=== PATIENT | male | born 1985 | race Caucasian/White ===

== ENCOUNTER 2019-02-11 15:32 | Emergency (ER) | payer OTHER ==
[~2019-02-11] VITALS: Ht 190.5 cm; Wt 131.5 kg
[~2019-02-11 15:32] MED LIST: AMOXICILLIN 50500 M1 PO; ANAPROX DS550 MG PO; IBUPROFEN 800800 MG PO; ULTRAM 50MG TAB50 MG PO; VITAMIN D1000 UNI1 PO
[2019-02-11 18:21] VITALS: BP 157/79
== END 2019-02-11 18:22 | disposition home or self-care (01) ==
LOC: M.ERS 15:32
DX: S61.301A Unspecified open wound of left index finger with damage to nail, initial encounter (principal); W26.8XXA Contact with other sharp object(s), not elsewhere classified, initial encounter; Y93.89 Activity, other specified; Y92.89 Other specified places as the place of occurrence of the external cause; Y99.8 Other external cause status